=== PATIENT | male | born 1985 | race Caucasian/White ===

== ENCOUNTER 2018-04-13 00:16 | Emergency (ER) | payer OTHER ==
[2018-04-13 01:08] VITALS: TEMP 98.7; O2SAT 98
--- NOTE | 2018-04-13 01:43 | ED PDOC ---
HPI: Chest Pain Time Seen by Provider: 04/13/18 00:51 Chief Complaint (Nursing): Chest Pain Chief Complaint (Provider): Chest Pain History Per: Patient History/Exam Limitations: no limitations Onset/Duration Of Symptoms: Sudden Onset (1600 today) Current Symptoms Are (Timing): Still Present Additional Complaint(s): 32 year old male, with no significant past medical history, presenting for evaluation of chest pain onset at 4 PM today. Patient states his pain began suddenly and radiated to his left arm, but resolved spontaneously after a few minutes. He reports he last felt the pain just prior to arrival. He also reports some associated shortness of breath and lightheaded. Patient denies any leg swelling. PMD: None Past Medical History Reviewed: Historical Data, Nursing Documentation, Vital Signs Vital Signs: Last Vital Signs Temp 98.7 F 04/13/18 00:35 Pulse 96 H 04/13/18 01:51 Resp 16 04/13/18 00:35 BP 148/75 04/13/18 01:51 Pulse Ox 98 04/13/18 03:00 - Medical History PMH: No Chronic Diseases - Surgical History Surgical History: No Surg Hx - Family History Family History: States: Hypertension - Social History Current smoker - smoking cessation education provided: Yes (heavy) Alcohol: None Drugs: Denies - Allergies Allergies/Adverse Reactions: Allergies Allergy/AdvReac Type Severity Reaction Status Date / Time No Known Allergies Allergy Verified 04/13/18 00:56 Review of Systems ROS Statement: Except As Marked, All Systems Reviewed And Found Negative Cardiovascular: Positive for: Chest Pain (radiating to left arm), Light Headedness Respiratory: Positive for: Shortness of Breath Physical Exam - Reviewed Nursing Documentation Reviewed: Yes Vital Signs Reviewed: Yes - Physical Exam Appears: Positive for: Well, No Acute Distress Head Exam: Positive for: ATRAUMATIC, NORMOCEPHALIC Skin: Positive for: Warm, Dry Eye Exam: Positive for: EOMI, PERRL ENT: Negative for: Pharyngeal Erythema, Tonsillar Exudate Neck: Positive for: Painless ROM, Supple Cardiovascular/Chest: Positive for: Regular Rate, Rhythm, Chest Non Tender. Negative for: Murmur Respiratory: Positive for: Normal Breath Sounds (lungs clear to auscultation). Negative for: Rales, Wheezing, Respiratory Distress Gastrointestinal/Abdominal: Positive for: Soft. Negative for: Tenderness Back: Positive for: Normal Inspection. Negative for: Decreased ROM Extremity: Negative for: Pedal Edema Lymphatic: Negative for: Adenopathy Neurologic/Psych: Positive for: Alert. Negative for: Motor/Sensory Deficits - Laboratory Results Result Diagrams: 04/13/18 01:38 04/13/18 01:38 - ECG ECG: Positive for: Interpreted By Me ECG Rhythm: Positive for: Normal QRS, Sinus Rhythm (92 bpm) Interpretation Of Abn EKG: possible peaked T-waves in V1 and V2 O2 Sat by Pulse Oximetry: 98 Pulse Ox Interpretation: Normal - Radiology X-Ray: Interpreted by Me X-Ray Interpretation: No Acute Disease - Other Rad CHEST X-RAY X-Ray: Interpreted by Me, Viewed By Me X-Ray Interpretation: No acute findings Medical Decision Making Medical Decision Makin Impression: Chest pain. Differential diagnoses include, but are not limited to costochondritis, muscle strain, anxiety, and stress. Plan: -EKG -CMP -CPK -Magnesium -Phosphorus -Troponin I -CBC w/ differential -D Dimer -CXR -checker bakery products -IV Insertion -Reevaluation Labs unremarkable. Repeat EKG. MARIANO, sinus oleg, otherwise unchanged. HEART Pathway for Early Discharge in Acute Chest Pain from [facility] on 2017 RESULT SUMMARY: 1 points HEART Pathway Score Low risk 0.91.7% 30-day [facility] INPUTS: History > 0 = Slightly suspicious EKG > 0 = Normal Age > 0 = <45 Risk factors > 1 = 1-2 risk factors Initial troponin > 0 = normal limit Scribe Attestation: Documented by Harinder Clifton, acting as a scribe for Mame Wood MD. Provider Scribe Attestation: All medical record entries made by the Scribe were at my direction and personally dictated by me. I have reviewed the chart and agree that the record accurately reflects my personal performance of the history, physical exam, medical decision making, and the department course for this patient. I have also personally directed, reviewed, and agree with the discharge instructions and disposition. Disposition - Clinical Impression Clinical Impression: Chest pain Counseled Patient/Family Regarding: Studies Performed, Diagnosis, Need For Followup - Disposition Referrals: [facility] [Outside] Disposition: Routine/Home Disposition Time: 03:56 Condition: STABLE Additional Instructions: FOLLOW UP WITH YOUR PMD OR CLINIC WITHIN W WEEK FOR REEVALUATION TAKE MOTRIN OR ADVIL FOR PAIN. Instructions: Chest Pain That Is Not Caused by the Heart (DC), Costochondritis (DC) Forms: [facility] ED School/Work Excuse
[2018-04-13 02:01] LABS: BASO % 0.4 % (0.0-2.0); EOS # 0.4 K/uL (0.0-0.7); EOS % 4.2 % (0.0-4.0); HEMOGLOBIN 15.1 g/dL (12.0-18.0); LYMPH # 4.2 K/uL (1.0-4.3); LYMPH % 39.3 % (20.0-40.0); MEAN CORPUSCULAR HEMOGLOBIN 29.7 pg (27.0-31.0); MEAN CORPUSCULAR HGB CONC 34.1 g/dL (33.0-37.0); MEAN PLATELET VOLUME 8.7 fl (7.2-11.7); MONO # 0.9 K/uL (0.0-0.8); MONO % 8.8 % (0.0-10.0); NEUT % 47.3 % (50.0-75.0); RBC 5.09 Mil/uL (4.40-5.90); RED CELL DISTRIBUTION WIDTH 13.5 % (11.5-14.5); WHITE BLOOD COUNT 10.6 K/uL (4.8-10.8)
[2018-04-13 02:45] LABS: ALB/GLOB RATIO 1.2 (1.0-2.1); ALBUMIN 4.3 g/dL (3.5-5.0); ALT/SGPT 40 U/L (21-72); AST/SGOT 42 U/L (17-59); BLOOD UREA NITROGEN 24 mg/dl (9-20); CALCIUM 9.8 mg/dL (8.4-10.2); GFR NON-AFRICAN AMERICAN > 60
[2018-04-13 07:58] VITALS: BP 118/66; PULSE 59; RESP 18
--- NOTE | 2018-04-13 09:34 | RAD ---
Date of service: 04/13/2018 HISTORY: chest pain COMPARISON: No prior. TECHNIQUE: Chest PA and lateral FINDINGS: LUNGS: No active pulmonary disease. PLEURA: No significant pleural effusion identified. No pneumothorax apparent. CARDIOVASCULAR: Normal. OSSEOUS STRUCTURES: No significant abnormalities. VISUALIZED UPPER ABDOMEN: Normal. OTHER FINDINGS: None. IMPRESSION: No acute cardiopulmonary disease appreciated.
--- NOTE | 2018-04-13 09:40 | CARD ---
APPROVED REPORT Date of service: 04/13/2018 <Conclusion> Sinus bradycardia Early repolarization Otherwise normal ECG
--- NOTE | 2018-04-13 09:41 | CARD ---
APPROVED REPORT Date of service: 04/13/2018 <Conclusion> Normal sinus rhythm Normal ECG
== END 2018-04-13 05:40 | disposition home or self-care (01) ==
LOC: H.ER 00:16
DX: R07.9 Chest pain, unspecified (principal); F17.200 Nicotine dependence, unspecified, uncomplicated
CPT/HCPCS: 71046; 80053; 82550; 83735; 84100; 84484; 85025; 85378; 93005; 96374; 99285; J1885